=== PATIENT | female | born 1955 | race Caucasian/White ===

== ENCOUNTER → 2017-01-13 | Day surgery (SDC) | payer BC ==
[~2017-01-13] MED LIST: BUPIVACAINE/EPINEPHRINE 0.5% PF 30 ML VIAL ONE; KETOROLAC TROMETHAMINE 30 MG/ML (IVP) VIAL IV PUSH ONE; LACTATED RINGER'S 1000 ML INJ 1,000 ML ONE; MEPERIDINE HCL 50 MG/ML VIAL ONE; MIDAZOLAM HCL 2 MG/2 ML VIAL ONE; ONDANSETRON HCL 4 MG/2 ML VIAL IV PUSH ONE; PROPOFOL 200 MG/20 ML AMP IV ONE; ceFAZolin 2 GM PREMIX 50 ML ONE; metroNIDAZOLE 500 MG INJ 100 ML IV ONE
--- NOTE | 2017-01-13 11:30 | TN ---
cc: GERHARD GARZA M.D. DATE OF SURGERY 01/13/2017 PREOPERATIVE DIAGNOSIS Chronic cholecystitis POSTOPERATIVE DIAGNOSIS Chronic cholecystitis PROCEDURE PERFORMED Laparoscopic cholecystectomy SURGEON Gerhard Garza MD ANESTHESIA General endotracheal KEYBOARDING CLERK Nan Mora, MS3 ANESTHESIA General endotracheal COMPLICATIONS None INDICATION FOR THE PROCEDURE Ms. Rivera is a very pleasant 61-year-old female who has had problems with right upper quadrant abdominal pain after eating. She underwent evaluation and was found to have several large gallstones. She was referred for consideration of cholecystectomy. The risks and benefits of laparoscopic, possible open cholecystectomy was discussed with her and she was agreeable. DETAILS The patient was identified, brought to the operating room, placed supine on the operating table. After adequate general endotracheal anesthesia was achieved, the abdomen was prepped and draped in standard surgical fashion. The infraumbilical space anesthetized with quarter percent Marcaine. An infraumbilical incision was made. Dissection was carried down through the subcutaneous tissues to the midline fascia. The midline fascia was then incised sharply. A finger was then placed in the peritoneal cavity without difficulty. Blunt balloon trocar was inserted and the abdomen was insufflated to 15 mmHg using CO2 gas. Next, two 5 mm trocars were placed in the right upper quadrant after anesthetizing the skin and subcutaneous tissue with 0.25% Marcaine. Both trocars were placed under direct vision. Attention was directed to the gallbladder which was noted to be of normal size and color. The liver was noted to be slightly fatty with yellow discoloration. The gallbladder was retracted cephalad. The gallbladder neck was then carefully identified. The cystic artery and cystic duct were dissected out and clearly visualized in two planes. Once they were confirmed in two planes, they were clipped twice proximally, once distally and then divided. The gallbladder was then dissected out of the hepatic fossa using electrocautery Bovie. The gallbladder was placed in the Endopouch bag and brought out through the infraumbilical port. The gallbladder was inspected and clips were found to be intact on the cystic duct stump without evidence without evidence of leakage of bile. There was one large gallstones and several small gallstones noted. Gallbladder sent to pathology for analysis. Next, the abdominal cavity was revisualized. He liver bed was completely hemostatic. Clips were visualized on the cystic artery and cystic duct stump and there was no evidence of leakage of bile or bleeding. Quarter percent Marcaine was then injected into the operative field. All ports were removed under direct vision. The midline fascia was then repaired with a 0 Vicryl in a [id number] fashion. Skin was closed with 4-0 Vicryl. The patient tolerated the procedure well, was awakened and extubated and brought to recovery in stable condition. MD PEDRO Weldon/JOSSY /11:09 AM /11:23 AM
== END | disposition home or self-care (01) ==
LOC: ESDC 08:11
PROVIDERS: ATTEND Surgery Trauma Surgery
DX: K80.10 Calculus of gallbladder with chronic cholecystitis without obstruction (principal)
CPT/HCPCS: 00790; 47562; 88304; J0690; J1885; J2175; J2250; J2405; J3010; J7120

== ENCOUNTER 2018-01-24 10:08 | Observation (INO) ==
[2018-01-25 03:31] VITALS: PULSE 67
[2018-01-25 08:06] VITALS: BP 141/67; RESP 18; TEMP 98.2; O2SAT 95
== END 2018-01-25 14:20 | disposition home or self-care (01) ==
LOC: NEPE 10:08 → NEPHCDU 10:08 → NEDA 10:08 → NEPHCDU 16:39
PROVIDERS: ADMIT Internal Medicine Cardiovascular Disease; ATTEND Internal Medicine Cardiovascular Disease